=== PATIENT | female | born 2000 | race Caucasian/White ===

== ENCOUNTER 2019-02-25 09:01 | Emergency (ER) | payer OTHER ==
[~2019-02-25] VITALS: Ht 177.8 cm; Wt 61.8 kg
[2019-02-25 09:03] VITALS: BP 146/82
--- NOTE | 2019-02-25 09:13 | NUR ---
PATIENT PRESENTS TO ED TODAY FOR SORE THROAT, COUGH X 1 WEEK. AWAITING MD ORDERS, CALL LIGHT WITHIN REACH
--- NOTE | 2019-02-25 09:55 | NUR ---
Patient/Caregiver given discharge instructions and they have confirmed that they understand the instructions. Patient ambulatory with steady gait.
== END 2019-02-25 09:57 | disposition home or self-care (01) ==
LOC: ED 09:20
DX: J20.8 Acute bronchitis due to other specified organisms (principal); F17.200 Nicotine dependence, unspecified, uncomplicated
CPT/HCPCS: 99281